=== PATIENT | male | born 1955 | race Caucasian/White ===

== ENCOUNTER → 2016-12-05 | Outpatient (CLI) | payer OTHER ==
--- NOTE | 2016-12-05 10:37 | KCIC ---
Examination: MRI of the right knee without contrast HISTORY: History of twisting injury in September 2016, pain, instability COMPARISON: None available TECHNIQUE: Multiplanar, multisequence MR imaging of the right knee was performed without contrast. FINDINGS: The anterior cruciate ligament, posterior cruciate ligament are intact. There is increased signal with blunting identified in the body of the medial meniscus with signal extending into the posterior horn likely tear of the body and posterior horn of the medial meniscus. There is sauer signal extending into the anterior and posterior horns of the medial meniscus likely degeneration. The lateral meniscus is intact. The medial collateral ligament is intact with moderate edema identified surrounding the distal portion of the medial collateral ligament probably grade 2 sprain. There is moderate edema identified in the medial tibial plateau probably bone marrow contusion or impaction fracture. Moderate knee joint effusion. Lateral collateral ligamentous complex including the fibular collateral ligament, biceps femoris tendon, popliteus tendon are intact. The extensor mechanism is intact. There is moderate edema identified surrounding the distal portion of the medial retinaculum likely secondary to injury. The lateral retinaculum is intact. Small popliteal cyst identified. There is minimal superficial fraying of cartilage identified in the medial, patellofemoral compartment. Moderate soft tissue edema identified surrounding the distal portion of the knee joint medially. IMPRESSION: 1. Tear of the body and posterior horn of the medial meniscus. 2. Horizontal signal identified in the anterior horn and posterior the medial meniscus likely degeneration. 3. Moderate trabecular edema identified in the medial tibial plateau likely bone marrow contusion or impaction fracture. 4. Moderate edema identified surrounding the distal portion of the medial collateral ligament and medial retinaculum probably grade 2 sprain or injury. 5. Moderate knee joint effusion with small popliteal cyst. Electronically signed by: Yash Browne MD (12/05/2016 10:34 AM) [id number]
== END | disposition home or self-care (01) ==
LOC: KCIC MRI 09:15
PROVIDERS: ATTEND Internal Medicine
DX: S83.241A Other tear of medial meniscus, current injury, right knee, initial encounter (principal); M71.21 Synovial cyst of popliteal space [Baker], right knee; X58.XXXA Exposure to other specified factors, initial encounter; Y93.89 Activity, other specified; Y92.89 Other specified places as the place of occurrence of the external cause; Y99.8 Other external cause status
CPT/HCPCS: 73721